=== PATIENT | female | born 1955 | race Caucasian/White ===

== ENCOUNTER 2017-07-21 08:21 | Inpatient (IN) ==
--- NOTE | 2017-07-20 21:59 | Discharge Summary ---
<Lucy Solorio - Last Filed: 07/20/17 21:57> Date of Encounter: 07/20/17 - Discharge Diagnosis (1) Rotator cuff tear arthropathy of right shoulder Priority: Primary Status: Acute (2) Status post total shoulder arthroplasty Priority: Primary Status: Acute Qualifiers: Laterality: right Qualified Code(s): Z96.611 - Presence of right artificial shoulder joint (3) HTN (hypertension) Priority: Secondary Status: Chronic Qualifiers: Hypertension type: essential hypertension Qualified Code(s): I10 - Essential (primary) hypertension (4) Thyroid disease Priority: Secondary Status: Chronic - Discharge Medications Home Medications: Metoprolol [Lopressor] 25 mg PO BID 05/04/16 [History] Levothyroxine [Synthroid] 25 mcg PO DAILY 10/14/16 [History] Cyclobenzaprine [Flexeril] 10 mg PO TID PRN 06/07/17 [History] Sertraline [Zoloft] 25 mg PO DAILY 06/07/17 [History] OxyCODONE Immed Rel [Roxicodone 5 MG] 5 - 10 mg PO Q6HR PRN #40 tablet 07/20/17 [Rx] Ascorbate Calcium [Vitamin C] 500 mg PO BID 07/21/17 [History] Buspirone HCl [Buspar] 10 mg PO BID PRN 07/21/17 [History] Guaifenesin [Mucus Relief] 400 mg PO DAILY 07/21/17 [History] Allergies/Adverse Reactions: 3 Allergy/AdvReac Type Severity Reaction Status Date / Time No Known Allergies Allergy Verified 07/21/17 08:56 Primary care physician: Brigette Pandey - Patient Status Disposition: Home, Self-Care Condition: Good - Discharge Instructions Follow Up With: Brigette Pandey [Primary Care Provider] - - Hospital Course Hospital course: Ms. Wu is a 61 year old female - Time Spent with Patient Total time spent providing and/or coordinating discharge services: <Yaya Goldstein - Last Filed: 07/22/17 06:50> Date of Encounter: 07/22/17 Time of Encounter: 06:50 - Discharge Diagnosis (1) Rotator cuff tear arthropathy of right shoulder Priority: Primary Status: Chronic (2) Status post total shoulder arthroplasty Priority: Primary Status: Acute Qualifiers: Laterality: right Qualified Code(s): Z96.611 - Presence of right artificial shoulder joint (3) HTN (hypertension) Priority: Secondary Status: Chronic Qualifiers: Hypertension type: essential hypertension Qualified Code(s): I10 - Essential (primary) hypertension (4) Thyroid disease Priority: Secondary Status: Chronic Primary care physician: Brigette Pandey - Patient Status Functional capacity at discharge: independent ambulation Overall status at discharge: patient is progressing back to baseline - Hospital Course Hospital course: Ms. Wu is a 61 year old female Status post right total shoulder replacement The patient had an uneventful postoperative course. They received antibiotics and physical therapy and were discharged in stable condition. There will follow -up in the office in 2 weeks. - Time Spent with Patient Total time spent providing and/or coordinating discharge services:
[2017-07-21] MEDS ORDERED: Lidocaine -MPF 1% 2 ML VIAL ID ONE (08:50)
[2017-07-21] MEDS ORDERED: CeFAZolin Pre 2,000 MG/100 ML 2,000 MG/100 ML BAG IVPB ONE (08:50)
[2017-07-21] MEDS ORDERED: Famotidine 20 MG/2 ML VIAL IVP ONE (08:58)
[2017-07-21] MEDS ORDERED: Gabapentin 300 MG CAPSULE PO ONE (08:59)
[2017-07-21] MEDS ORDERED: Plasma-Lyte A (PH 7.4) 1,000 ML IVC SCH (09:00)
--- NOTE | 2017-07-21 09:00 | History & Physical Report ---
Date of Encounter: 07/21/17 Time of Encounter: 08:59 24 Hour HP Update - Instructions Instructions: If the History and Physical is less than 30 days old and was completed prior to A.M. admission and or procedure and has NOT been updated on calendar day of procedure please complete this update prior to performing procedure. - Update Patient reports changes in Medical Condition: No Changes in examination, assessment, or condition: No Changes in Medication: No Preop tests/diagnostics Reviewed: Yes Surgery Remains Indicated: Yes Consent for Planned Operative Procedure(s) Verified: Yes - Pre-Operative Checklist Preoperative Checklist Indicated: No Prophylactic Antibiotic Ordered: Yes Is VTE Prophylaxis Indicated?: Yes
[2017-07-21] MEDS ORDERED: *HR* Propofol 200 MG/20 ML VIAL IVP ONE (09:20)
[2017-07-21] MEDS ORDERED: *HR* Succinylcholine 200 MG/10 ML VIAL IVP ONE (09:20)
[2017-07-21] MEDS ORDERED: *HR* FentaNYL (PF) 100 MCG/2 ML VIAL ONE (09:20)
[2017-07-21] MEDS ORDERED: Dexamethasone 4 MG/ML VIAL ONE (09:20)
[2017-07-21] MEDS ORDERED: Lidocaine -MPF 2% 2 ML VIAL ONE (09:20)
[2017-07-21] MEDS ORDERED: Lidocaine -MPF 4% 5 ML AMPUL ONE (09:20)
[2017-07-21] MEDS ORDERED: Ondansetron 4 MG/2 ML VIAL ONE (09:20)
[2017-07-21] MEDS ORDERED: *HR* Midazolam HCl 2 MG/2 ML VIAL ONE (09:20)
[2017-07-21] MEDS ORDERED: Ketorolac 30 MG/ML VIAL ONE (09:22)
--- NOTE | 2017-07-21 09:28 | Physician Discharge Referral ---
Home Health/Hosp Referral Info Transfer to: Home Health Attending Provider: Provider in Charge Post Discharge: PCP - Diagnosis (1) Rotator cuff tear arthropathy of right shoulder Priority: Primary Status: Chronic (2) Status post total shoulder arthroplasty Priority: Primary Status: Acute (3) HTN (hypertension) Priority: Secondary Status: Chronic (4) Thyroid disease Priority: Secondary Status: Chronic - Respiratory Orders None Smoking Cessation: Smoking cessation has been advised. For more information, call the [place] Tobacco Quit Line at 3-981-PQIZ-NOW. - Dressing/Wound Care Type of Dressing/Treatments w/Frequency: Shoulder - LEFT Opsite dressing, leave intact until first post-operative visit. If dressing becomes >50% saturated, contact office, remove dressing and place appropriate dressing in its place. Do not allow for dressing to get wet. Zipline dressing under Opsite, do not remove until POW#2. - Diet/Nutrition Diet/Nutrition Orders: Regular - Activity Activity Orders: Up ad [place], Ambulate - Services Needed Following services are medically necessary services: Nursing, Home Health Aide, Physical Therapy, Occupational Therapy Home Care Orders: .PT: Precautions x 6 weeks Apply cold therapy wrap 3-6x/day for 20 minutes at a time. Encourage ambulation throughout the day and incentive spirometer 10x/hour. Elevate affected extremity above heart as tolerated. Brace: Continue in Arm slingshot and physical therapy. Follow Total Shoulder precautions x 6 weeks. No lifting/pulling or pushing. - Transfer Medications Prescriptions: OxyCODONE Immed Rel [Roxicodone 5 MG] 5 - 10 mg PO Q6HR PRN #40 tablet PRN Reason: Pain Home Medications: Metoprolol [Lopressor] 25 mg PO BID 05/04/16 [History] Levothyroxine [Synthroid] 25 mcg PO DAILY 10/14/16 [History] Cyclobenzaprine [Flexeril] 10 mg PO TID PRN 06/07/17 [History] Sertraline [Zoloft] 25 mg PO DAILY 06/07/17 [History] OxyCODONE Immed Rel [Roxicodone 5 MG] 5 - 10 mg PO Q6HR PRN #40 tablet 07/20/17 [Rx] Ascorbate Calcium [Vitamin C] 500 mg PO BID 07/21/17 [History] Buspirone HCl [Buspar] 10 mg PO BID PRN 07/21/17 [History] Guaifenesin [Mucus Relief] 400 mg PO DAILY 07/21/17 [History] Allergies/Adverse Reactions: 3 Allergy/AdvReac Type Severity Reaction Status Date / Time No Known Allergies Allergy Verified 07/21/17 08:56 Certification: Further, I certify that my clinical findings support that this patient is homebound (i.e. absences from home require considerable and taxing effort and are for medical reasons or jewish services or infrequently or short duration when for other reasons) because: Homebound Reason: Post-surgery restriction and or conditions limit ability to leave home Attestation: My signature below is to certify that this patient is under my care and that I, or nurse practitioner, or a physician's financial sales assistant working with me, has a face-to -face encounter with this patient.
[2017-07-21] MEDS ORDERED: Scopolamine Patch 1.5 MG PATCH.TD72 TD ONE (09:29)
--- NOTE | 2017-07-21 09:34 | Anesthesia Evaluation PreOp ---
Date of Encounter: 07/21/17 Time of Encounter: 09:30 - Past History Planned Operation: Rt Total Shoulder Replacement Cardiac History: HTN, Hyperlipidemia Pulmonary History: Denies Any Significant HX PASTRY CHEF History: Other (Cervical Radiculitis, slight weakness Rt UE) Other Medical History: Thyroid Anesthesia History: No Prior Anesthetic Complications : No Alcohol Use: none Medications and Allergies Metoprolol [Lopressor] 25 mg PO BID 05/04/16 [History] Levothyroxine [Synthroid] 25 mcg PO DAILY 10/14/16 [History] Cyclobenzaprine [Flexeril] 10 mg PO TID PRN 06/07/17 [History] Sertraline [Zoloft] 25 mg PO DAILY 06/07/17 [History] OxyCODONE Immed Rel [Roxicodone 5 MG] 5 - 10 mg PO Q6HR PRN #40 tablet 07/20/17 [Rx] Ascorbate Calcium [Vitamin C] 500 mg PO BID 07/21/17 [History] Buspirone HCl [Buspar] 10 mg PO BID PRN 07/21/17 [History] Guaifenesin [Mucus Relief] 400 mg PO DAILY 07/21/17 [History] 3 Allergy/AdvReac Type Severity Reaction Status Date / Time No Known Allergies Allergy Verified 07/21/17 08:56 - Meds/Allergy Pre-op Review Medications Reviewed: Yes Allergies Reviewed: Yes Beta Blockers on Current Med List: Yes (Took Metoprolol today 0600) Anesthesia Results - Labs Laboratory Tests 07/17/17 07/17/17 09:53 09:53 Hgb 12.0 Hct 38.9 Plt Count 331 Sodium 137 Potassium 4.1 BUN 8 Creatinine 0.72 - Imaging EKG: report reviewed (SR) Anesthesia Exam O2 Sat Height 1.68 m Height 1.68 m Weight 63.957 kg Weight 63.957 kg O2 Sat by Pulse Oximetry 100 Vital Signs Temp Pulse Resp BP Pulse Ox 98.0 F 68 18 142/76 100 07/21/17 08:38 07/21/17 08:38 07/21/17 08:38 07/21/17 08:38 07/21/17 08:38 Height: 5'6 Weight: 138 lbs NPO (# of Hours): MN Pain Scale: 0 - HEENT Pupil (Motor): Pupils equal, EOMI Mallampati: II Teeth: Normal Oral Opening: Greater than 3 - PASTRY CHEF LOC: Oriented PASTRY CHEF Motor: Normal LUE, Normal RLE, Normal LLE, Normal Face, Deficit RUE (slight weakness) PASTRY CHEF Sensory: Normal: LUE, RLE, LLE, Face, Deficit: RUE (slight paresthesia) - Cardiac Rhythm: Regular Murmur: None JVD: No Carotid Bruit: No - Pulmonary Breath Sounds: bilateral Clear Respiratory Effort: Symmetrical Anesthesia Assess/Plan ASA Score: 2 Modified [place] Scale for Level of Consciousness: Cooperative, oriented, and tranquil Anesthetic Plan: General, Regional Monitoring Plan: Standard Monitors Recovery Plan: PACU (Discussed GA and RA, risks and benefits, agrees to proceed)
[2017-07-21] MEDS ORDERED: ROPIVACAINE HCL/PF 0.5% 30 ML VIAL ONE (09:43)
--- NOTE | 2017-07-21 10:11 | Anesthesia Procedures ---
Date of Encounter: 07/21/17 Time of Encounter: 10:09 Procedures: Anesthesia - Nerve Block Procedure Date: 07/21/17 Time: 10:09 Allergies/Adv Reactions: nka Pre-op Diagnosis: right shoulder RC arthropathy Surgical Procedure: right TSA, rev Checklist: Correct Patient Identifier, Correct procedure, History checked Correct side: Right Blood Thinner: No Monitor Applied: EKG, BP, Pulse Oximetry Supplemental Oxygen via Nasal Cannula (L/min): 2 Sedation: Versed (mg): 2 Sedation: Fentanyl (mcg): 100 Indication: Post Op Analgesia Pre-op Neuro Deficits: No Block Type: Supraclavicular (10mL), Other (CP - 5mL) Catheter placed: No Sterile Technique: Yes Ultrasound used: Yes Anatomy identified: Yes Visual spread of Local: Yes Neuro Stimulation: No Blood on Needle Aspiration: No Smooth Injection of Local: Yes Pain with Injection of Local: No Prep: Chlorhexadine Needle: 22 x 50 mm Stimuplex Local: Ropivacaine (0.5%), Other (decadron 8mg) Volume (cc): 30 Number of Attempts: 1 Complications: None/effective block
--- NOTE | 2017-07-21 11:11 | Orthopedic Operative Note ---
Date of procedure: 07/21/17 Pre-op diagnosis: Right shoulder cuff tear arthropathy Post-op diagnosis: same Procedure: Procedure: Right Total Shoulder Replacment Reverse, biceps tenodesis Estimated blood loss: 100 cc Hardware: Metal and polyethylene replacement: Arthrex medium glenoid baseplate , 2 4.5 screws. 1 6.5 screw, 39+4 glenosphere, 8 humeral stem, poly insert 6 Exam Under anesthesia: Full motion no instability Procedural Notes: Irreparable tear supraspinatus Operative procedure: The patient was brought to the operating room and placed on the operating room table. After general anesthesia was administered the operative shoulder was examined. Findings were noted. The patient was placed in the modified beachchair position. All pressure points were padded appropriately. And the head was stabilized in the neutral position. The operative extremity was prepped and draped in the sterile surgical fashion. The patient received IV antibiotics prior to skin incision. A standard deltopectoral approach was made to the operative shoulder. Incision was made to the skin and subcutaneous tissue,hemo stasis was obtained with Bovie cautery. Using careful blunt dissection the cephalic vein was identified and mobilized medially. The deltopectoral interval was developed and the clavipectoral fascia was incised. The subscap was released off the lesser tuberosity and tagged with #2 FiberWire suture the subscap was irreparable. The humerus was dislocated patient noted to have irreparable tear supraspinatus tendon, and the humeral cut was made along the anatomic neck. Anterior and posterior Bankart retractors were placed to expose the glenoid. The glenoid guide was seated and the centering hole was made. It was reamed with the appropriate reamer. The medium baseplate was seated and secured with (2) 4.5 screws and one 6.5 screw. The baseplate was irrigated and dried and the 39+4 Glenosphere was seated and secured with the Lara taper. The Lara taper was tested and found to be secure the humerus was redislocated and prepared with the diaphyseal reamers, followed by a broaching process up to the appropriate size 8 in the patient's anatomic version. The metaphyseal reamer was then utilized. Trial reduction found the shoulder to be relocatable. Trial components were removed and drill holes were placed in the lesser tuberosity. They were filled with #5 FiberWire suture incorporating the biceps tendon. The appropriate 8 stem was impacted in place in the patient's anatomic version. Trial reduction found the shoulder to be relocatable and stable with the appropriate 6 Sheila Trial component was removed and the real 6 Sheila was seated and secured the shoulder was reduced. The shoulder had excellent motion and excellent stability and no evidence of dislocation. The deep tissue was irrigated with pulse irrigation. The biceps was tenodesed. The shoulder was closed by the PA. The deltopectoral interval was closed with a running #1 PDS suture, subcutaneous tissue was irrigated and closed with 0 PDS suture, the skin was closed with Dermabond. The patient was placed in a sterile dressing, abduction brace and extubated. The patient was then transferred to the recovery room in stable condition. Anesthesia: CHELSEA Surgeon: Yaya Goldstein Hygiene Teacher: Ana Green Condition: stable Disposition: PACU
[2017-07-21] MEDS: *HR* HYDROmorphone (PF) 1 MG/ML SYRINGE IVP PRN ×2 (11:51→11:56)
[2017-07-21 11:58] LABS: Hematocrit 36.8 % (35.3-44.9); Hemoglobin 11.7 g/dL (11.5-15.4)
[2017-07-21] MEDS: *HR* Promethazine 25 MG/ML VIAL IVP PRN ×2 (12:03→12:12)
[2017-07-21] MEDS ORDERED: *HR* OxyCODONE Immed Rel 5 MG TABLET PO PRN (12:49)
[2017-07-21] MEDS ORDERED: MOM Conc 10 ML UD.LIQ PO PRN (12:49)
[2017-07-21] MEDS ORDERED: Temazepam 15 MG CAPSULE PO PRN (12:49)
[2017-07-21] MEDS ORDERED: Naloxone 0.4 MG/ML INJ IVP PRN (12:49)
[2017-07-21] MEDS ORDERED: *HR* HYDROmorphone (PF) 1 MG/ML SYRINGE IVP PRN (12:49)
[2017-07-21] MEDS ORDERED: Sennosides 8.6 MG TABLET PO PRN (12:49)
[2017-07-21] MEDS ORDERED: Ondansetron 4 MG/2 ML VIAL IVP PRN (12:49)
[2017-07-21] MEDS ORDERED: Ringers Solution, Lactated 1,000 ML IVC SCH (12:49)
--- NOTE | 2017-07-21 12:54 | Anesthesia Evaluation Post Op ---
Date of Encounter: 07/21/17 Time of Encounter: 12:45 - Vital Signs Vital Signs: Vital Signs/O2 Sat/Glucose, Most Current Temp Pulse Resp BP Pulse Ox 07/21/17 12:29 97.2 F L 62 16 155/92 100 07/21/17 12:19 97.2 F L 59 14 169/91 100 07/21/17 12:09 58 16 170/99 100 07/21/17 11:59 97.3 F L 63 16 162/82 100 07/21/17 11:49 67 16 143/86 100 07/21/17 11:39 63 14 154/91 100 07/21/17 11:29 97.1 F L 57 16 140/76 100 - Lungs Lungs: Clear Ascult./Percussion - Airway Airway: Non-obstructed - Cardiovascular Regular Rate - Mental Status Mental Status: Alert & Oriented, Answers Appropriately - Pain Pain Scale: 0 - Nausea Vomiting Nausea Vomiting: Not Present - Hydration Hydration: NPO - Discharge PostOp Status: Transfer Patient to floor
[2017-07-21] MEDS: *HR* OxyCODONE Immed Rel 5 MG TABLET PO PRN ×2 (15:42→20:22)
[2017-07-21] MEDS: *HR* Enoxaparin 30 MG/0.3 ML SYRINGE SQ SCH (17:05)
[2017-07-21] MEDS: ceFAZolin 2,000 MG in D5% in Water 100 ML IVPB SCH (17:07)
[2017-07-21] MEDS ORDERED: *HR* Enoxaparin 30 MG/0.3 ML SYRINGE SQ SCH (18:00)
[2017-07-21] MEDS: Ascorbic Acid 500 MG TABLET PO SCH (20:19)
[2017-07-22] MEDS: ceFAZolin 2,000 MG in D5% in Water 100 ML IVPB SCH (02:11)
[2017-07-22] MEDS: *HR* OxyCODONE Immed Rel 5 MG TABLET PO PRN ×2 (02:42→06:46)
[2017-07-22] MEDS: *HR* Enoxaparin 30 MG/0.3 ML SYRINGE SQ SCH (05:14)
[2017-07-22 05:29] LABS: Hematocrit 32.2 % (35.3-44.9); Hemoglobin 10.2 g/dL (11.5-15.4)
[2017-07-22] MEDS ORDERED: Levothyroxine 25 MCG TABLET PO SCH (06:30)
--- NOTE | 2017-07-22 06:51 | Orthopedics Progress Note ---
Date of Encounter: 07/22/17 Time of Encounter: 06:50 - Assessment and Plan (1) Rotator cuff tear arthropathy of right shoulder Current Visit: Yes Status: Chronic (2) Status post total shoulder arthroplasty Current Visit: Yes Status: Acute Qualifiers: Laterality: right Qualified Code(s): Z96.611 - Presence of right artificial shoulder joint (3) HTN (hypertension) Current Visit: Yes Status: Chronic Qualifiers: Hypertension type: essential hypertension Qualified Code(s): I10 - Essential (primary) hypertension (4) Thyroid disease Current Visit: Yes Status: Chronic Subjective Interval history: Patient was seen this morning doing well without complaints. Afebrile vital signs stable. Operative extremity: Neurovascularly intact Dressing clean dry and intact Calves nontender Assessment and plan: Continue with postoperative care Hematocrit 32 discharged today Objective Vital signs: Vital Signs Temp Pulse Resp BP Pulse Ox 07/22/17 05:17 97.5 F L 76 18 110/69 99 07/21/17 23:52 98.0 F 73 17 108/72 98 07/21/17 21:33 97.7 F 85 17 120/72 96 07/21/17 15:30 98.2 F 69 12 134/73 99 07/21/17 13:46 97.6 F 62 12 144/82 100 07/21/17 12:48 97.3 F L 63 14 169/70 98 07/21/17 12:29 97.2 F L 62 16 155/92 100 07/21/17 12:19 97.2 F L 59 14 169/91 100 07/21/17 12:09 58 16 170/99 100 07/21/17 11:59 97.3 F L 63 16 162/82 100 07/21/17 11:49 67 16 143/86 100 07/21/17 11:39 63 14 154/91 100 07/21/17 11:29 97.1 F L 57 16 140/76 100 07/21/17 08:38 98.0 F 68 18 142/76 100 Intake and Output 07/21/17 07/21/17 07/22/17 15:59 23:59 07:59 Intake Total 100 / 100 440 / 440 700 / 700 Output Total 100 / 100 Balance 0 / 0 440 / 440 700 / 700 Intake: IV Fluids 100 / 100 100 / 100 Ancef 2,000 MG In 100 / 100 100 / 100 Dextrose 5% 100 ML @ 200 mls/hr IVPB Q8H MANUEL Rx#: [id number] Oral 100 / 100 340 / 340 600 / 600 Output: Estimated Blood Loss 100 / 100 Other: Meal Dinner Percent of Meal Consumed 75% # Voids 1 3 Weight 63.957 kg - Labs CBC & BMP: 07/22/17 05:21 Labs: Abnormal lab results Hgb 10.2 g/dL (11.5-15.4) L D 07/22/17 05:21 Hct 32.2 % (35.3-44.9) L 07/22/17 05:21 - VTE Documentation of Mechanical Device: Venous foot pump, device Consult Discharge Plan - Plan Referrals: Brigette Pandey [Primary Care Provider] -
[2017-07-22] MEDS: Ascorbic Acid 500 MG TABLET PO SCH (08:41)
[2017-07-22 10:28] VITALS: BP 138/71
== END 2017-07-22 13:12 | disposition home or self-care (01) | DRG 483 ==
LOC: SAMDAY 08:21 → 3NENU 12:48
PROVIDERS: ADMIT Orthopaedic Surgery; ATTEND Orthopaedic Surgery